=== PATIENT | male | born 1995 | race Caucasian/White ===

== ENCOUNTER 2017-04-17 20:12 | Emergency (ER) | payer OTHER ==
[2017-04-17] MEDS: MORPHINE SULFATE 10 MG/ML VIAL. IV (20:57)
== END 2017-04-17 22:00 | disposition home or self-care (01) ==
LOC: ER 20:12
DX: S62.306A Unspecified fracture of fifth metacarpal bone, right hand, initial encounter for closed fracture (principal); W22.8XXA Striking against or struck by other objects, initial encounter; Y93.89 Activity, other specified; Y92.89 Other specified places as the place of occurrence of the external cause; Y99.8 Other external cause status
CPT/HCPCS: 26605; 73120; 73130; 96374; 99284-25; J2270